=== PATIENT | female | born 1965 | race Caucasian/White ===

== ENCOUNTER 2022-09-20 07:48 | Outpatient (CLI) | payer OTHER, SELFPAY ==
[2022-09-20 09:22] LABS: Albumin* 4.5 g/dL (3.3-5.0)
[2022-09-20 09:23] LABS: Chloride* 107 mmol/L (96-114); Potassium* 4.8 mmol/L (3.6-5.1); Sodium* 138 mmol/L (135-149)
[2022-09-20 09:25] LABS: Alkaline Phosphatase* 58 U/L (40-150); Aspartate Amino Transferase* 25 U/L (12-35); Bilirubin Total* 0.7 mg/dL (0.1-1.5); Blood Urea Nitrogen* 14 mg/dL (7-30); Carbon Dioxide* 26 mmol/L (20-32); Cholesterol* 254 mg/dL (90-199); Creatinine* 0.6 mg/dL (0.5-1.5); Estimated Glomerular Filt Rate 104 ml/min; Total Protein* 7.5 g/dL (6.0-8.3)
[2022-09-20 09:26] LABS: Alanine Aminotransferase* 21 U/L (4-35); Calcium* 9.5 mg/dL (8.4-10.6); Glucose* 94 mg/dL (60-115); HDL Cholesterol* 71 mg/dL (>=50); LDL Cholesterol Calculated 155 mg/dL (<100); Triglycerides* 142 mg/dL (40-149)
[2022-09-20 09:40] LABS: Free T4 Free Thyroxine* 1.19 ng/dL (0.70-1.85)
== END 2022-09-20 07:49 | disposition home or self-care (01) ==
LOC: NFLDREF 07:49
PROVIDERS: PCP Family Medicine; Visit Provider Family Medicine
DX: E03.9 Hypothyroidism, unspecified (principal); E78.5 Hyperlipidemia, unspecified; Z13.228 Encounter for screening for other metabolic disorders
CPT/HCPCS: 80053; 80061; 84439; 84443

== ENCOUNTER 2022-11-17 10:53 | Outpatient (CLI) | payer OTHER, SELFPAY ==
--- NOTE | 2022-11-17 12:12 | W.ANESCHARGE ---
Anesthesia Charges Start Date/Time Anesthesia Start Date: 11/17/22 Anesthesia Start Time: 11:43 Stop Date/Time Anesthesia Stop Date: 11/17/22 Anesthesia Stop Time: 12:08
--- NOTE | 2022-11-17 12:35 | W.ANESCHARGE ---
Anesthesia Charges Start Date/Time Anesthesia Start Date: 11/17/22 Anesthesia Start Time: 11:43 Stop Date/Time Anesthesia Stop Date: 11/17/22 Anesthesia Stop Time: 12:08
== END 2022-11-17 10:54 | disposition home or self-care (01) ==
LOC: OP CLINIC 10:53
PROVIDERS: PCP Family Medicine; Visit Provider Surgery
DX: Z12.11 Encounter for screening for malignant neoplasm of colon (principal); K63.5 Polyp of colon; K57.30 Diverticulosis of large intestine without perforation or abscess without bleeding; Z86.010 Personal history of colon polyps
CPT/HCPCS: 00811; 45385; J2704

== ENCOUNTER 2023-01-18 07:27 | Outpatient (CLI) | payer OTHER, SELFPAY | END 2023-01-18 07:28 | disposition home or self-care (01) | LOC: NFLDREF 01-19 00:52 | PROVIDERS: PCP Family Medicine; Referring Provider Family Medicine; Visit Provider Family Medicine | DX: E78.5 Hyperlipidemia, unspecified (principal) | CPT/HCPCS: 80061 ==

== ENCOUNTER 2023-01-19 15:35 | Outpatient (CLI) | payer OTHER, SELFPAY ==
--- NOTE | 2023-01-19 15:40 | CRLHL7_ITS ---
For Patients: As a result of the Century Cures Act, medical imaging exams and procedure reports are released immediately into your electronic medical record. You may view this report before your referring provider. If you have questions, please contact your health care provider. BILATERAL SCREENING MAMMOGRAM WITH COMPUTER-AIDED DETECTION AND TOMOSYNTHESIS TECHNIQUE: CC and MLO views were obtained. These mammographic images have been obtained using full-field digital technique. These mammographic images were interpreted with the benefit of computer-aided detection. Breast Tomosynthesis was used in this interpretation. COMPARISON FILM: 09/30/21, 02/21/20, 10/25/18. FINDINGS: There are scattered areas of fibroglandular density IMPRESSION: There is no radiographic evidence for malignancy. ASSESSMENT: BI-RADS Category 1: Negative RECOMMENDATION: Routine screening mammogram in 1 year. A lay language report of this examination will be provided to the patient. Jaylen Ocasio M.D. Diagnostic Radiologist [email or web address] ZACK/Dictated by: Jaylen Ocasio MD @ 01/20/2023 11:51:00 AM (Electronically Signed)
== END 2023-01-19 15:36 | disposition home or self-care (01) ==
LOC: MAMMO 15:36
PROVIDERS: PCP Family Medicine; Visit Provider Family Medicine
DX: Z12.31 Encounter for screening mammogram for malignant neoplasm of breast (principal)
CPT/HCPCS: 77063; 77067

== ENCOUNTER 2023-10-12 08:38 | Outpatient (CLI) | payer OTHER, SELFPAY | END 2023-10-12 08:39 | disposition home or self-care (01) | PROVIDERS: PCP Family Medicine; Visit Provider Family Medicine | DX: E03.9 Hypothyroidism, unspecified (principal); E78.2 Mixed hyperlipidemia; I10 Essential (primary) hypertension | CPT/HCPCS: 80053; 80061; 84443 ==

== ENCOUNTER 2023-11-07 14:30 | Outpatient (RCR) | payer OTHER, SELFPAY | END 2023-12-28 13:15 | disposition home or self-care (01) | PROVIDERS: PCP Family Medicine; Visit Provider Family Medicine | DX: M54.50 Low back pain, unspecified (principal); Z51.89 Encounter for other specified aftercare | CPT/HCPCS: 97110; 97140; 97161 ==

== ENCOUNTER 2023-12-21 10:35 | Outpatient (CLI) | payer OTHER, SELFPAY ==
--- OUTSIDE RECORDS SUMMARY | 2023-12-22 12:46 | XMS_ITS | Clinical Summary ---
Author Name Unknown Organization [facility] Address [place], [place] [address] Care Team Providers Care National Accounts Sales Name Role Phone Sasha Pimentel MD Primary Care Provider + Allergies Active Allergy Reactions Criticality Noted Date Comments Cefadroxil Hives 11/02/2006 Medications Medication Sig Dispensed Refills Start Date End Date Status levothyroxine (SYNTHROID) 100 mcg tabletIndications:Un specified hypothyroidism TAKE ONE TABLET BY MOUTH EVERY MORNING BEFORE BREAKFAST 90 tablet 2 01/20/2013 Active cetirizine (ZYRTEC) 10 mg tabletIndications:Al lergic rhinitis, cause unspecified TAKE ONE TABLET BY MOUTH EVERY DAY 90 tablet 0 09/10/2013 Active rx oxyCODONE 5 mg (ROXICODONE) tablet (ED DC MED)Indications:Clos ed 3-part fracture of surgical neck of left humerus, initial encounter Take 1 Tablet (5 mg) by mouth every 6 hours if needed for Pain. 4 Tablet 11/13/2023 Active rosuvastatin (CRESTOR) 5 mg tablet Take 5 mg by mouth once daily. 10/18/2023 Active fluticasone (50 mcg per actuation) nasal solution (FLONASE) Inhale 2 Sprays to both nostrils once daily. 08/31/2023 Active losartan (COZAAR) 25 mg tablet Take 25 mg by mouth once daily. 10/12/2023 Active oxyCODONE (ROXICODONE) 5 mg immediate release tabletIndications:Cl osed 3-part fracture of surgical neck of left humerus, initial encounter Take 1 Tablet (5 mg) by mouth every 6 hours if needed for Pain. 20 Tablet 11/16/2023 Active acetaminophen (TylenoL) 325 mg tablet Take 650 mg by mouth every 6 hours if needed for Pain. Max acetaminophen dose: 4000mg in 24 hrs. Active oxyCODONE-acetaminop hen (PERCOCET) 5-325 mg per tabletIndications:Ot her closed displaced fracture of proximal end of left humerus, initial encounter Take 1-2 Tablets by mouth every 4 hours if needed for Pain. Max acetaminophen dose: 4000mg in 24 hrs. 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 Encounters Date Type Department Care Team Description 12/20/2023 11:34 AM CDT - 12/20/2023 11:59 PM CDT Hospital Encounter [address] [address] Tom Rooney MD Iverson, Ryan, PT 12/20/2023 Travel 12/15/2023 2:30 PM CDT - 12/15/2023 11:59 PM CDT Hospital Encounter [address] [address] Tom Rooney MD Vinar, Kaylin J, OCCUPATIONAL THERAPY AIDES TEACHER 12/15/2023 Travel 12/12/2023 2:30 PM CDT - 12/12/2023 11:59 PM CDT Hospital Encounter [address] [address] Tom Rooney MD Vinar, Kaylin J, OCCUPATIONAL THERAPY AIDES TEACHER 12/12/2023 Travel 12/07/2023 8:21 AM CDT - 12/07/2023 11:59 PM CDT Hospital Encounter [address] [address] Tom Rooney MD Iverson, Ryan, PT S/P ORIF (open reduction internal fixation) fracture 12/06/2023 8:25 AM CDT Ancillary Procedure [facility] [address] [place] [phone] 12/06/2023 8:20 AM CDT Office Visit [facility] [address] [place] [phone] Tom Rooney MD Surgical Followup (ORIF Left Shoulder) 12/06/2023 Travel 11/21/2023 10:45 AM CDT Anesthesia Event [facility] [address] [facility] [place] [address] Jie Romero CRNA Peterson, Bonnie Gail, CRNA 11/21/2023 10:05 AM CDT - 11/21/2023 12:20 PM CDT Surgery [facility] [address] [facility] [place] [address] Tom Rooney MD ORIF - PROXIMAL HUMERUS - LT ARM 11/21/2023 9:03 AM CDT - 11/21/2023 3:10 PM CDT Hospital Encounter [facility] [address] [place] [address] Tom Rooney MD Other closed displaced fracture of proximal end of left humerus, initial encounter (Primary Dx) Discharge Disposition: Home Self Care 11/21/2023 Travel 11/20/2023 Telephone [facility] [place] [address] [place] [phone] Tom Rooney MD Questions (questions) 11/16/2023 10:50 AM CDT Preop Visit [address] [address] Nalini Miranda MD Preoperative Exam (11/21/2023, ORIF - PROXIMAL HUMERUS - LT ARM, [facility], Dr. Rooney) 11/16/2023 Telephone [facility] [address] [place] [phone] Tom Rooney MD Need Meds (Refill) 11/15/2023 11:00 AM CDT Ancillary Procedure [facility] [address] [place] [phone] 11/15/2023 10:20 AM CDT Office Visit [facility] [address] [place] [phone] Tom Rooney MD Consult (Left Humerus Fx) 11/15/2023 Travel 11/13/2023 8:02 PM CDT - 11/13/2023 9:50 PM CDT Emergency [facility] [address] [facility] [place] [place] [address] Juan Antonio Mancuso PA Closed 3-part fracture of surgical neck of left humerus, initial encounter (Primary Dx) Discharge Disposition: Home Self Care 11/13/2023 Travel from Last 3 Months Immunizations Name Administration Dates Next Due Influenza A (H1N1), Inactivated 07/21/2009 Influenza RIV4 (Age 18+ Years) PRESERV FREE 08/2021,06/10/2021 Influenza, IIV3 (Age >=3 years) 08/14/2012,06/28,06/22/2005 Influenza, IIV4 07/27/2023,07/21/2009 Influenza, IIV4 (=>6mos) MDV 04/29/2020,06/03/20 19 Influenza, Live, Intranasal Laiv3 05/03/2011 Td (Age >=7 Years) 01/13/1998 Td, Preservative Free (age >= 7 Years) 5 Tdap 09/16/2008 Family History Medical History Relation Name Comments Heart Disease Father Other Father hiatal hernia Cancer Mother oral and lung Hyperlipidemia Mother Diabetes Other 1 mothers sibling s Heart Disease Other 2 mothers siblin gs Heart Disease Paternal Grandfather Cancer-breast Paternal Grandmother Heart Disease Paternal Uncle multiple unc les Asthma Sister 1 Other Sister 2 esophogeal stri ctures Relation Name Status Comments Father (Age 50) heart jean ck Mother (Age 74) oral and l wolf cancer Other 1 Other 2 Paternal Grandfather (Age 50) he art attack Paternal Grandmother (Age 70) br east cancer Paternal Uncle Sister 1 Sister 2 Social History Tobacco Use Types Packs/Day Years Used Date Smoking Tobacco: Some Days Cigarettes Smokeless Tobacco: Never Alcohol Use Standard Drinks/Week Comments Yes 0 (1 standard drink = 0.6 oz pur e alcohol) occasional PHQ-2 Answer Date Recorded PHQ-2 TOTAL SCORE 0 11/16/2023 Social Connections Answer Date Recorded Frequency of Communication with Friends and Fami ly 0 11/16/2023 Financial Resource Strain Answer Date R ecorded Difficulty of Paying Living Expenses 3 11/16/2023 Difficulty of Paying Living Expenses Not on file 11/16/2023 Food Insecurity Answer Date Recorded Worried About Running Out of Food in the Last Ye ar 1 11/16/2023 Transportation Needs Answer Date Record ed Lack of Transportation (Medical) 1 11/16/2023 Housing Stability Answer Date Recorded Unable to Pay for Housing in the Last Year 1 11/16/2023 Sex and Gender Information Value Date Recorded Sex Assigned at Not on file Gender Identity Not on file Sexual Orientation Not on file Obstetrics History Para Term AB IAB SAB Ectopic Multiple Livin g Live Births 2 2 Date Outcome GA Total Labor Labor/2nd/3rd Weight Sex Delivery Anes PTL Alta A1 A5 Name Cl in Last Filed Vital Signs Vital Sign Reading Time Taken Comments Blood Pressure 120/59 11/21/2023 2:15 PM CDT Pulse 64 11/21/2023 2:15 PM CDT Temperature 36.9 ??C (98.4 ??F) 11/21/2023 1:10 PM CD T Respiratory Rate 16 11/21/2023 2:15 PM CDT Oxygen Saturation 92% 11/21/2023 2:15 PM CDT Inhaled Oxygen Concentration - - Weight 67.3 kg (148 lb 4.8 oz) 11/21/2023 9:27 A M CDT Height 165.1 cm (5' 5) 11/21/2023 9:27 AM CDT Body Mass Index 24.68 11/21/2023 9:27 AM CDT Plan of Treatment Upcoming Encounters Date Type Department Care Team (Late st Contact Info) Description 12/26/2023 1:00 PM CDT Appointment [address] [address] Darion Lui, PT [address] [facility] [place] [address] 12/29/2023 9:15 AM CDT Appointment [address] [address] 01/03/2024 8:00 AM CDT Office Visit [facility] [place] [address] [place] [phone] Tom Rooney MD [address] [place] [address] 01/03/2024 3:15 PM CDT Appointment [address] [address] Anabel Olvera V, OCCUPATIONAL THERAPY AIDES TEACHER [address] [place] [address] 01/10/2024 11:00 AM CDT Appointment [address] [address] Norma Porter, OCCUPATIONAL THERAPY AIDES TEACHER [address] [place] [address] 01/18/2024 8:00 AM CDT Appointment [address] [address] Darion Lui, PT [address] [place] [address] 01/22/2024 2:30 PM CDT Appointment [address] [address] Darion Lui, PT [address] [facility] [place] [address] 01/25/2024 8:45 AM CDT Appointment [facility] [address] [facility] [address] Norma Porter, OCCUPATIONAL THERAPY AIDES TEACHER [address] [place] [address] 01/29/2024 3:15 PM CDT Appointment [facility] [address] [place] [address] Darion Lui, PT [address] [facility] [place] [address] 02/01/2024 8:45 AM CDT Appointment [facility] [address] [place] [place] [address] Darion Lui, PT [address] [place] [address] Health Maintenance Due Date Last Done Comments Pneumococcal series for age 6-64 (1 of 2 - PCV) 1970 HIV for age 15-65 1979 Hepatitis C screening for ag e 18-79 1982 Colonoscopy through age 75 2009 Zoster (shingles) series for age 50+ (1 of 2) 2014 Mammogram for age 45-75 01/17/2016 01/17/20 15, 06/08/2012, 06/04/2012, Additional history exists Lipids for age 45-75 12/12/2016 12/13/2011, 10/07/2009, 01/20/2009, Additional history exists COVID-19 vaccine series (2022- season) 2023 07/07/2022, 07/08/2021, 11/21/2020, Additional history exists Influenza for age 50-64 04/07/2024 07/27/20 23, 07/07/2022, 06/10/2021, Additional history exists Pap test for age 21-65 06/10/2024 , 06/10/2021, 01/26/2016, Additional history exists BMI (ht and wt on same day) for age 18+ 11/15/2024 11/16/2023 Depression screening for age 12+ 11/19/2024 11/20/2023, 11/16/2023, 11/16/2023, Additional history exists Tetanus booster 01/20/2025 01/20/2015, 09/07, 01/13/1998 Tdap Completed 09/16/2008 Medical Devices Implanted Type Area Rn Pediatric Device Identifier Shelf Expiration Date Model / Serial / Lot Proximal Lateral Humerus Plate Implanted:Qty: 1 on 11/21/2023 by Tom Rooney MD at [facility] Left: Humerus [employer] [id number] / / 3.5mm Cortical Screw, Self Tapping Implanted:Qty: 1 on 11/21/2023 by Tom Rooney MD at [facility] Left: Humerus [employer] [id number] / / 3.5mm Cortical Screw, Self Tapping Implanted:Qty: 1 on 11/21/2023 by Tom Rooney MD at [facility] Left: Humerus [employer] [id number] / / 4.0mm Cortical Screw, Self Tapping Implanted:Qty: 1 on 11/21/2023 by Tom Rooney MD at [facility] Left: Humerus [id number] / / 4.0 Mm Cortical Screw, Self Tapping Implanted:Qty: 3 on 11/21/2023 by Tom Rooney MD at [facility] Left: Humerus [employer] [id number] / / 4.0 Mm Cortical Screw, Self Tapping Implanted:Qty: 2 on 11/21/2023 by Tom Rooney MD at [facility] Left: Humerus [employer] [id number] / / 3.5mm Cortical Screw, Self Tapping Implanted:Qty: 3 on 11/21/2023 by Tom Rooney MD at [facility] Left: Humerus [employer] [id number] / / 3.5mm Cortical Screw, Self Tapping Implanted:Qty: 1 on 11/21/2023 by Tom Rooney MD at [facility] Left: Humerus [employer] [id number] / / Explanted Type Area Rn Pediatric Device Identifier Shelf Expiration Date Model / Serial / Lot 4.0mm Cortical Screw, Self Tapping Explanted:Qty: 1 on 11/21/2023 by Tom Rooney MD at [facility] Left: Humerus [id number] / / [employer] [place] 10pk - [id number] Explanted:Qty: 8 on 11/21/2023 by Tom Rooney MD at [facility] Left: Humerus [employer] [id number] / / Procedures Procedure Name Priority Date/Time Associated Diagnosis Comments XR SHOULDER 3 VIEWS LEFT Routine 12/06/2023 8:20 AM CDT S/P ORIF (open reduction internal fixation) fracture XR C-ARM GREATER 1 HR Routine 11/21/2023 1:01 PM CDT PERIPHERAL BLOCK Routine 11/21/2023 11:05 AM CDT SUPRAGLOTTIC-LMA Routine 11/21/2023 11:05 AM CDT OPEN REDUCTION INTERNAL FIXATION HUMERUS Class E Urgent 11/21/2023 10:25 AM CDT Closed 3-part fracture of surgical neck of left humerus, initial encounter Case Notes MIKI MIGHT BE THEREPLEASE CONTACT LEORA WITH Dmitriy aware of 1015 start. 11/14 Special Needs POST OP APPTS MADE BEDSIDE US STUDY ARCHIVE Routine 11/21/2023 10:18 AM CDT BEDSIDE US STUDY ARCHIVE Routine 11/21/2023 10:01 AM CDT POTASSIUM Routine 11/16/2023 12:05 PM CDT Pre-op exam CREATININE Routine 11/16/2023 12:05 PM CDT Pre-op exam XR SHOULDER 1 VIEW LEFT Routine 11/15/2023 11:03 AM CDT Closed 3-part fracture of surgical neck of left humerus, initial encounter XR FOREARM 2 VIEWS LEFT PORTABLE STAT 11/13/2023 9:14 PM CDT XR SHOULDER 2 VIEWS LEFT PORTABLE STAT 11/13/2023 8:51 PM CDT HPV THIN PREP Routine 06/10/2021 10:52 AM CDT SCAN-MAMMOGRAPHY REPORT 01/16/2015 12:00 AM CDT LIPID PANEL Routine 12/13/2011 9:11 AM CDT Screening, lipid from Last 3 Months or Most Recently Relevant to Health Maintenance Results * XR SHOULDER 3 VIEWS LEFT (12/06/2023 8:20 AM CDT) Anatomical Region Laterality Modality SHOULDERS, SHOULDER L Computed R adiography 12/06/2023 8:33 AM CDT Narrative 12/06/2023 8:33 AM CDT For Patients: ??As a result of the Cures Act, medical imaging exams and procedure reports are released immediately into your electronic medical record. ??You may view this report before your referring provider. ??If you have questions, please contact your health care provider. INDICATION: Status post ORIF. TECHNIQUE: Three views left shoulder. FINDINGS: Compression plate and multiple screws stabilize the comminuted left humeral head and surgical neck fracture in anatomical position and alignment for healing. No evidence of complication. Dictated by Aiden Farris MD @ 12/06/2023 8:33:41 AM (Electronically Signed) Procedure Note Aguila Farris MD - 12/06/2023 For Patients: As a result of the Cures Act, medical imagingexams and procedure reports are released immediately into your electronicmedical record. You may view this report before your referring provider.If you have questions, please contact your health care provider. INDICATION: Status post ORIF. TECHNIQUE: Three views left shoulder. FINDINGS: Compression plate and multiple screws stabilize the comminuted lefthumeral head and surgical neck fracture in anatomical position andalignment for healing. No evidence of complication. Dictated by Aiden Farris MD @ 12/06/2023 8:33:41 AM (Electronically Signed) Tom Rooney MD GENERAL IMAGIN G * XR C-ARM GREATER 1 HR (11/21/2023 1:01 PM CDT) Anatomical Region Laterality Modality X-Ray Angiograph y 11/22/2023 9:44 AM CDT Narrative 11/22/2023 9:44 AM CDT For Patients: ??As a result of the Cures Act, medical imaging exams and procedure reports are released immediately into your electronic medical record. ??You may view this report before your referring provider. ??If you have questions, please contact your health care provider. INDICATION: Left humerus ORIF. TECHNIQUE: Two spot images of the left shoulder. FINDINGS: Plate and screws across a left proximal humerus fracture. Dictated by Jason Tena MD @ 11/22/2023 9:44:59 AM (Electronically Signed) Procedure Note Jason Tena MD - 11/22/2023 For Patients: As a result of the Cures Act, medical imagingexams and procedure reports are released immediately into your electronicmedical record. You may view this report before your referring provider.If you have questions, please contact your health care provider. INDICATION: Left humerus ORIF. TECHNIQUE: Two spot images of the left shoulder. FINDINGS: Plate and screws across a left proximal humerus fracture. Dictated by Jason Tena MD @ 11/22/2023 9:44:59 AM (Electronically Signed) Tom Rooney MD FLUOROSCOPY * Peripheral Block (11/21/2023 11:05 AM CDT) Narrative Jie Romero CRNA - 11/21/2023 11:05 AM CDT Jie Romero CRNA ? 11/21/2023 11:09 AM Peripheral Block Patient location during procedure: OR Start time: 11/21/2023 10:40 AM End time: 11/21/2023 10:44 AM Reason for block: at surgeon's request and post-op pain PreProcedure Checklist Completed: patient identified, site marked, risks and benefits discussed, surgical consent, timeout performed and hand hygiene performed. Peripheral Block Patient position: sitting Prep: chloraprep Patient monitoring: ECG, blood pressure and continuous pulse oximetry Neuro Status: mild sedation Block type: supraclavicular and upper extremity , regional analgesia techniques Upper extremity block type: supraclavicular, regional analgesia techniques Laterality: left Injection technique: single injection Needle Needle type: Stimuplex ?? Needle Details: stimulating and echogenic Needle gauge: 20 G Needle length: 4 in Unilateral needle localization (ultrasound): live ultrasound guidance, needle and nerve visualized and local anesthetic visualized surrounding nerve. Unilateral needle Localization (plane blocks): needle and expected nerve location visualized and local anesthetic visualized in anatomic plane Events: no complications. Additional Notes Nerve stimulator utilized lost twitch at 0.3. pt tolerated well. Jie Romero CRNA ANESTHESIA PX NOTE ORDERABLES * Supraglottic (11/21/2023 11:05 AM CDT) Narrative Jie Romero CRNA - 11/21/2023 11:05 AM CDT Jie Romero CRNA ? 11/21/2023 11:05 AM Procedure: Supraglottic Patient location during procedure: OR Supraglottic Airway Properties Mask Ventilation: easy Type: i-gel Tube Size: 4 Insertion Attempts: 1 Placement Verification: auscultation and CO2 detection Assessment Assessment: atraumatic and dentition unchanged Jie Romero CRNA ANESTHESIA PX NOTE ORDERABLES * POTASSIUM (11/16/2023 12:05 PM CDT) POTASSIUM 4.2 3.5 - 5.1 mmol/L 11/16/2023 10:01 PM CDT [facility] Blood BLOOD SPECIMEN / Unknown Venipuncture / Unknown 11/16/2023 12:05 PM CDT 11/16/2023 12:05 PM CDT Nalini Miranda MD CHEMISTRY Performing Organization Address [facility] Co de Phone Number [facility] [address] [place] [address], * (ABNORMAL) CREATININE (11/16/2023 12:05 PM CDT) eGFR 89(L) >90 mL/min/1.7 3m2 11/16/2023 10:01 PM CDT [facility] Comment:As of 2021, eG FR is calculated by the CKD-EPI creatinine equation without race adjustment. ??eGFR can be influenced by muscle mass, exercise, and diet. ??The reported eGFR is an estimation only and is only applicable if the renal function is stable. CREATININE 0.77 0.50 - 0.90 mg/dL 11/16/2023 10:01 PM CDT [facility] Blood BLOOD SPECIMEN / Unknown Venipuncture / Unknown 11/16/2023 12:05 PM CDT 11/16/2023 12:05 PM CDT Nalini Miranda MD CHEMISTRY Performing Organization Address [facility] Phone Number [facility] [address] [place] [address], [place] * XR SHOULDER 1 VIEW LEFT (11/15/2023 11:03 AM CDT) Anatomical Region Laterality Modality SHOULDERS, SHOULDER L Computed R adiography 11/15/2023 11:2 9 AM CDT Narrative 11/15/2023 11:29 AM CDT For Patients: ??As a result of the 21st Century Cures Act, medical imaging exams and procedure reports are released immediately into your electronic medical record. ??You may view this report before your referring provider. ??If you have questions, please contact your health care provider. INDICATION: Surgical neck fracture. TECHNIQUE: Single axillary view of the left shoulder. FINDINGS: Comminuted surgical neck fracture is displaced anteriorly with slight rotation of the humeral head. The glenohumeral joint spacing is anatomically maintained. There are minimally displaced fragments of the lateral humeral head. Dictated by Aiden Farris MD @ 11/15/2023 11:29:18 AM (Electronically Signed) Procedure Note Aguila Farris MD - 11/15/2023 For Patients: As a result of the Cures Act, medical imagingexams and procedure reports are released immediately into your electronicmedical record. You may view this report before your referring provider.If you have questions, please contact your health care provider. INDICATION: Surgical neck fracture. TECHNIQUE: Single axillary view of the left shoulder. FINDINGS: Comminuted surgical neck fracture is displaced anteriorly with slightrotation of the humeral head. The glenohumeral joint spacing isanatomically maintained. There are minimally displaced fragments of thelateral humeral head. Dictated by Aiden Farris MD @ 11/15/2023 11:29:18 AM (Electronically Signed) Tom Rooney MD GENERAL IMAGIN G * XR FOREARM 2 VIEWS LEFT PORTABLE (11/13/2023 9:14 PM CDT) Anatomical Region Laterality Modality FOREARMS, FOREARM L Digital Radi ography 11/13/2023 9:17 PM CDT Impressions 11/13/2023 9:17 PM CDT 1. No acute osseous injuries or abnormalities are noted. Dictated by: Mike Goldberg MD @ 11/13/2023 21:17:53 (Electronically Signed) Narrative 11/13/2023 9:17 PM CDT For Patients: ??As a result of the Cures Act, medical imaging exams and procedure reports are released immediately into your electronic medical record. ??You may view this report before your referring provider. ??If you have questions, please contact your health care provider. INDICATION: Forearm Pain, Trauma TECHNIQUE: Forearm radiograph 2 views left COMPARISON: None FINDINGS: Bone: No acute fractures or aggressive bone lesions are identified. Joint: The visualized radiocarpal and elbow joints are unremarkable, but the elbow joint is not profiled. If there is pain or tenderness in this region, dedicated views of the elbow are recommended. No significant elbow effusion is seen. Soft tissue: Unremarkable. No radiopaque foreign bodies are seen. Procedure Note Mike Goldberg MD - 11/13/2023 For Patients: As a result of the Cures Act, medical imagingexams and procedure reports are released immediately into your electronicmedical record. You may view this report before your referring provider.If you have questions, please contact your health care provider. INDICATION: Forearm Pain, Trauma TECHNIQUE: Forearm radiograph 2 views left COMPARISON: None FINDINGS: Bone: No acute fractures or aggressive bone lesions are identified. Joint: The visualized radiocarpal and elbow joints are unremarkable, butthe elbow joint is not profiled. If there is pain or tenderness in thisregion, dedicated views of the elbow are recommended. No significant elboweffusion is seen. Soft tissue: Unremarkable. No radiopaque foreign bodies are seen. IMPRESSION: 1. No acute osseous injuries or abnormalities are noted. Dictated by: Mike Goldberg MD @ 11/13/2023 21:17:53 (Electronically Signed) [facility] * XR SHOULDER 2 VIEWS LEFT PORTABLE (11/13/2023 8:51 PM CDT) Anatomical Region Laterality Modality SHOULDERS, SHOULDER L Digital Ra diography 11/13/2023 9:05 PM CDT Impressions 11/13/2023 9:05 PM CDT 1. There is a comminuted fracture involving the greater tuberosity and surgical neck of the humerus. The distal fragment is displaced medially by 1.5 cm. Dictated by Mike Goldberg MD @ 11/13/2023 9:05:29 PM Dictated by: Mike Goldberg MD @ 11/13/2023 21:05:32 (Electronically Signed) Narrative 11/13/2023 9:05 PM CDT For Patients: ??As a result of the Cures Act, medical imaging exams and procedure reports are released immediately into your electronic medical record. ??You may view this report before your referring provider. ??If you have questions, please contact your health care provider. INDICATION: Shoulder Pain, Trauma TECHNIQUE: Shoulder radiograph 3 views left COMPARISON: None FINDINGS: Bone: There is a comminuted fracture involving the greater tuberosity and surgical neck of the humerus. The distal fragment is displaced medially by 1.5 cm. Joint: The glenohumeral joint is unremarkable. The acromioclavicular joint is unremarkable. Soft tissue: Unremarkable. The visualized hemithorax is unremarkable in appearance. No radiopaque foreign bodies are seen. Procedure Note Mike Goldberg MD - 11/13/2023 For Patients: As a result of the Cures Act, medical imagingexams and procedure reports are released immediately into your electronicmedical record. You may view this report before your referring provider.If you have questions, please contact your health care provider. INDICATION: Shoulder Pain, Trauma TECHNIQUE: Shoulder radiograph 3 views left COMPARISON: None FINDINGS: Bone: There is a comminuted fracture involving the greater tuberosity andsurgical neck of the humerus. The distal fragment is displaced medially by1.5 cm. Joint: The glenohumeral joint is unremarkable. The acromioclavicular jointis unremarkable. Soft tissue: Unremarkable. The visualized hemithorax is unremarkable inappearance. No radiopaque foreign bodies are seen. IMPRESSION: 1. There is a comminuted fracture involving the greater tuberosity andsurgical neck of the humerus. The distal fragment is displaced medially by1.5 cm. Dictated by Mike Goldberg MD @ 11/13/2023 9:05:29 PM Dictated by: Mike Goldberg MD @ 11/13/2023 21:05:32 (Electronically Signed) Juan Antonio ALCANTAR [facility] BERNARDA GING * HPV HIGH RISK (06/10/2021 10:52 AM CDT) TYPE 16 Negative Negative 06/14/2021 3:47 PM ELECTRICAL MANUFACTURING ENGINEER [facility] TYPE 18 Negative Negative 06/14/2021 3:47 PM ELECTRICAL MANUFACTURING ENGINEER [facility] OTHER HIGH RISK TYPES Negative Negative 06/14/2021 3:47 PM ELECTRICAL MANUFACTURING ENGINEER [facility] Other (Cervical/Vagina l) 06/10/2021 10:52 AM CDT 06/11/2021 10:28 AM CDT Narrative [facility] - 06/14/2021 3:47 PM ELECTRICAL MANUFACTURING ENGINEER HPV types 16, 18, 31, 33, 35, 39, 45, 51, 52, 56, 58, 59, 66 and 68 DNA were undetectable or below the pre-set threshold. Methodology: Adelfo Delfina 4800 HPV Test Sasha Pimentel MD MICROBIOLOGY [facility] [address] [place] [address], [place] * SCAN-MAMMOGRAPHY REPORT (01/16/2015 12:00 AM CDT) Anatomical Region Laterality Modality Other Narrative 01/21/2015 8:59 AM CDT Procedure Note Scanner - 01/16/2015 12:00 AM CDT Scanner OTHER * (ABNORMAL) LIPID PANEL (12/13/2011 9:11 AM CDT) CHOLESTEROL,TOTAL 212(H) 100 - 199 mg/dL [facility] TRIGLYCERIDES 121 <150 mg/dL [facility] HDL CHOLESTEROL 49 >40 mg/dL [facility] CHOL/HDL RATIO 4.33 <4.50 [facility] LDL CHOLESTEROL 139(H) <131 mg/dL [facility] PATIENT STATUS Fasting [facility] Blood specimen (specimen) BLOOD SPECIMEN / Unknown 12/13/2011 9:11 AM CDT 12/13/2011 9:06 AM CDT Tonja Armando NP CHEMISTRY [facility] [address] [place] [address] from Last 3 Months or Most Recently Relevant to Health Maintenance Advance Directives Documents on File Type Date Recorded Patient Machine I Trimmer Expl anation Healthcare Directive 10/15/2020 12:00 AM * Full Code (Latest Code Status on File) Date Activated Date Inactivated Comments 11/21/2023 10:11 AM 11/21/2023 5:34 PM Question Answer Comments Code Status Discussion: Reviewed Preferences Care Teams National Accounts Sales Relationship Specialty Start Date End Date Sasha Pimentel MD [address] [place] [address] PCP - General Family Practice 11/13/23
== END 2023-12-21 10:36 | disposition home or self-care (01) ==
LOC: NFLDREF 12-22 12:44
PROVIDERS: PCP Family Medicine; Referring Provider Family Medicine; Visit Provider Family Medicine
DX: I10 Essential (primary) hypertension (principal)
CPT/HCPCS: 80048

== ENCOUNTER 2024-04-17 15:05 | Outpatient (CLI) | payer OTHER, SELFPAY ==
--- OUTSIDE RECORDS SUMMARY | 2024-04-17 15:08 | XMS_ITS | Clinical Summary ---
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.5) 11/02/2006 Other anterior pituitary disorders 11/02/2006 Encounters Date Type Department Care Team Description 04/17/2024 8:44 AM CDT Hospital Encounter [address] [address] Tom Rooney MD Iverson, Ryan, PT Arrived 04/17/2024 Travel 04/10/2024 8:45 AM CDT - 04/10/2024 11:59 PM CDT Hospital Encounter [address] [address] Tom Rooney MD Wegner, Angela V, MANUFACTURING ENGINEER SUPERVISOR 04/10/2024 Travel 04/03/2024 8:41 AM CDT - 04/03/2024 11:59 PM CDT Hospital Encounter [address] [address] Tom Rooney MD Wegner, Angela V, MANUFACTURING ENGINEER SUPERVISOR 04/03/2024 Travel 03/27/2024 12:53 PM CDT - 03/27/2024 11:59 PM CDT Hospital Encounter [address] [address] Tom Rooney MD Iverson, Ryan, PT 03/27/2024 Travel 03/20/2024 9:29 AM CDT - 03/20/2024 11:59 PM CDT Hospital Encounter [address] [place] [address] Tom Rooney MD Wegner, Angela V, MANUFACTURING ENGINEER SUPERVISOR 03/20/2024 Travel 2024 1:00 PM CDT - 2024 11:59 PM CDT Hospital Encounter [address] [place] [address] Tom Rooney MD Iverson, Ryan, PT 2024 Travel 03/06/2024 7:54 AM CDT - 03/06/2024 11:59 PM CDT Hospital Encounter [address] [place] [address] Tom Rooney MD Iverson, Ryan, PT 03/06/2024 Travel 02/29/2024 7:52 AM CDT - 02/29/2024 11:59 PM CDT Hospital Encounter [address] [place] [address] Tom Rooney MD Wegner, Angela V, MANUFACTURING ENGINEER SUPERVISOR 02/29/2024 Travel 02/21/2024 3:00 PM CDT - 02/21/2024 11:59 PM CDT Hospital Encounter [address] [place] [address] Tom Rooney MD Iverson, Ryan, PT 02/21/2024 Travel 02/14/2024 8:20 AM CDT [facility] [place] [address] [place] [phone] Tom Rooney MD Surgical Followup (ORIF Left Proximal Humerus- 12 weeks) 02/14/2024 8:15 AM CDT Ancillary Procedure [facility] [address] [place] [address] [place] [phone] 02/14/2024 Travel 02/06/2024 10:56 AM CDT - 02/06/2024 11:59 PM CDT Hospital Encounter [address] [address] Tom Rooney MD Iverson, Ryan, PT 02/06/2024 Travel 02/01/2024 8:39 AM CDT - 02/01/2024 11:59 PM CDT Hospital Encounter [address] [address] Tom Rooney MD Iverson, Ryan, PT 02/01/2024 Travel 01/30/2024 3:15 PM CDT - 01/30/2024 11:59 PM CDT Hospital Encounter [address] [address] Tom Rooney MD Wegner, Angela V, MANUFACTURING ENGINEER SUPERVISOR 01/30/2024 Travel 01/25/2024 8:44 AM CDT - 01/25/2024 11:59 PM CDT Hospital Encounter [address] [address] Tom Rooney MD Vinar, Kaylin J, MANUFACTURING ENGINEER SUPERVISOR 01/25/2024 Travel 01/22/2024 2:30 PM CDT - 01/22/2024 11:59 PM CDT Hospital Encounter [address] [address] Tom Rooney MD Iverson, Ryan, PT 01/22/2024 Travel 01/18/2024 7:57 AM CDT - 01/18/2024 11:59 PM CDT Hospital Encounter [address] [address] Tom Rooney MD Iverson, Ryan, PT 01/18/2024 Travel from Last 3 Months Immunizations Name Administration Dates Next Due Influenza A (H1N1), Inactivated 07/21/2009 Influenza RIV4 (Age 18+ Years) PRESERV FREE 08/2021,06/10/2021 Influenza, IIV3 (Age >=3 years) 08/14/2012,06/28,06/22/2005 Influenza, IIV4 07/27/2023,07/21/2009 Influenza, IIV4 (=>6mos) MDV 04/29/2020,06/03/20 19 Influenza,LAIV3 Live Intranasal (Flumist) 2010 Td (Age >=7 Years) 01/13/1998 Td, Preservative [...] Outcome GA Total Labor Labor/2nd/3rd Weight Sex Type Anes PTL Alta A1 A5 Name Clin Last Filed Vital Signs Vital Sign Reading [...] Care Team (Late st Contact Info) Description 04/24/2024 9:30 AM CDT Appointment [address] [address] Anabel Olvera V, MANUFACTURING ENGINEER SUPERVISOR [address] [place] [address] 05/01/2024 2:30 PM CDT Appointment [address] [address] Darion Lui, PT [address] [place] [address] 05/15/2024 8:45 AM CDT Appointment [address] [address] Darion Lui, PT [address] [place] [address] Health Maintenance Due Date Last Done Comments [...] 01/20/2009, Additional history exists COVID-19 vaccine series (2022-24 season) 2024 07/07/2022, 07/08/2021, 11/21/2020, Additional history exists Influenza [...] Completed 09/16/2008 Medical Devices Implanted Type Area Treating Plant Pumper Device Identifier Shelf Expiration Date Model / Serial / Lot Proximal Lateral Humerus Plate Implanted:Qty: 1 on 11/21/2023 by Tom Rooney MD at [facility] Left: Humerus [employer] [id number] / / 3.5mm Cortical Screw, Self Tapping Implanted:Qty: 1 on 11/21/2023 by Tom Rooney MD at [facility] Left: Humerus [employer] [id number] / / 3.5mm Cortical Screw, Self Tapping Implanted:Qty: 1 on 11/21/2023 by Tom Rooney MD at [facility] Left: Humerus [employer] [id number] / / 4.0mm Cortical Screw, Self Tapping Implanted:Qty: 1 on 11/21/2023 by Tom Rooney MD at [facility] Left: Humerus [id number] / / 4.0 Mm Cortical Screw, Self Tapping Implanted:Qty: 3 on 11/21/2023 by Tom Rooney MD at [facility] Left: Humerus [employer] [id number] / / 4.0 Mm Cortical Screw, Self Tapping Implanted:Qty: 2 on 11/21/2023 by Tom Rooney MD at [facility] Left: Humerus [employer] [id number] / / 3.5mm Cortical Screw, Self Tapping Implanted:Qty: 3 on 11/21/2023 by Tom Rooney MD at [facility] Left: Humerus [employer] [id number] / / 3.5mm Cortical Screw, Self Tapping Implanted:Qty: 1 on 11/21/2023 by Tom Rooney MD at [facility] Left: Humerus [employer] [id number] / / Explanted Type Area Treating Plant Pumper Device Identifier Shelf Expiration Date Model / Serial / Lot 4.0mm Cortical Screw, Self Tapping Explanted:Qty: 1 on 11/21/2023 by Tom Rooney MD at [facility] Left: Humerus [id number] / / K-Wire [place] 10pk - [id number] Explanted:Qty: 8 on 11/21/2023 by Tom Rooney MD at [facility] Left: Humerus [employer] [id number] / / Procedures Procedure Name Priority Date/Time Associated Diagnosis Comments XR SHOULDER 3 VIEWS LEFT Routine 02/14/2024 8:14 AM CDT S/P ORIF (open reduction internal fixation) fracture HPV THIN PREP Routine 06/10/2021 10:52 AM CDT SCAN-MAMMOGRAPHY REPORT 01/16/2015 12:00 AM CDT LIPID PANEL Routine 12/13/2011 9:11 AM CDT Screening, lipid from Last 3 Months or Most Recently Relevant to Health Maintenance Results * XR SHOULDER 3 VIEWS LEFT (02/14/2024 8:14 AM CDT) Anatomical Region Laterality Modality SHOULDERS, SHOULDER L Computed R adiography 02/14/2024 8:28 AM CDT Impressions 02/14/2024 8:28 AM CDT Healing fracture of the proximal left humerus. No position change or complication when compared to the prior. Dictated by Aiden Farris MD @ 02/14/2024 8:28:27 AM (Electronically Signed) Narrative 02/14/2024 8:28 AM CDT For Patients: ??As a result of the Cures Act, medical imaging exams and procedure reports are released immediately into your electronic medical record. ??You may view this report before your referring provider. ??If you have questions, please contact your health care provider. INDICATION: Status post ORIF. TECHNIQUE: Three views left shoulder. COMPARISON: 01/03/2024 and 12/06/2023. FINDINGS: Healing surgical neck fracture of the proximal left humerus remains anatomically positioned. Plate and well-seated screws are unchanged. Glenohumeral joint spacing normal. Procedure Note Aguila Farris MD - 02/14/2024 For Patients: As a result of the s Act, medical imagingexams and procedure reports are released immediately into your electronicmedical record. You may view this report before your referring provider.If you have questions, please contact your health care provider. INDICATION: Status post ORIF. TECHNIQUE: Three views left shoulder. COMPARISON: 01/03/2024 and 12/06/2023. FINDINGS: Healing surgical neck fracture of the proximal left humerus remainsanatomically positioned. Plate and well-seated screws are unchanged.Glenohumeral joint spacing normal. IMPRESSION: Healing fracture of the proximal left humerus. No position change orcomplication when compared to the prior. Dictated by Aiden Farris MD @ 02/14/2024 8:28:27 AM (Electronically Signed) Tom Rooney MD GENERAL IMAGIN G * HPV HIGH RISK (06/10/2021 10:52 AM CDT) TYPE 16 Negative Negative 06/14/2021 3:47 PM WEATHERIZATION ADMINISTRATOR [facility] TYPE 18 Negative Negative 06/14/2021 3:47 PM WEATHERIZATION ADMINISTRATOR [facility] OTHER HIGH RISK TYPES Negative Negative 06/14/2021 3:47 PM WEATHERIZATION ADMINISTRATOR [facility] TRA LABORAT[facility] Other (Cervical/Vagina l) 06/10/2021 10:52 AM CDT 06/11/2021 10:28 AM CDT Narrative [facility] - 06/14/2021 3:47 PM WEATHERIZATION ADMINISTRATOR HPV types 16, 18, 31, 33, 35, 39, 45, 51, 52, 56, 58, 59, 66 and 68 DNA were undetectable or below the pre-set threshold. Methodology: Adelfo Delfina 4800 HPV Test Sasha Pimentel MD MICROBIOLOGY [facility] [address] [place] [address], * SCAN-MAMMOGRAPHY REPORT (01/16/2015 12:00 AM CDT) Anatomical Region Laterality Modality Other Narrative 01/21/2015 8:59 AM CDT Procedure Note Scanner - 01/16/2015 12:00 AM CDT Scanner OTHER * (ABNORMAL) LIPID PANEL (12/13/2011 9:11 AM CDT) CHOLESTEROL,TOTAL 212(H) 100 - 199 mg/dL [facility] TRIGLYCERIDES 121 <150 mg/dL [facility] HDL CHOLESTEROL 49 >40 mg/dL [facility] CHOL/HDL RATIO 4.33 <4.50 [facility] LDL CHOLESTEROL 139(H) <131 mg/dL [facility] PATIENT STATUS Fasting [facility] Blood specimen (specimen) BLOOD SPECIMEN / Unknown 12/13/2011 9:11 AM CDT 12/13/2011 9:06 AM CDT Tonja Armando REAGENT TENDER CHEMISTRY [facility] [address] [place] [address] from Last 3 Months or Most Recently Relevant to Health Maintenance Advance Directives Documents on File Type Date Recorded Patient Ad Operations Coordinator Expl anation Healthcare Directive 10/15/2020 12:00 AM * Full Code (Latest Code Status on File) Date Activated Date Inactivated Comments 11/21/2023 10:11 AM 11/21/2023 5:34 PM Question Answer Comments Code Status Discussion: Reviewed Preferences Care Teams Bull Riveter Relationship Specialty Start Date End Date Sasha Pimentel MD [address] [place] [address] PCP - General Family Practice 11/13/23
--- NOTE | 2024-04-17 15:20 | CRLHL7_ITS ---
For Patients: As a result of the Century Cures Act, medical imaging exams and procedure reports are released immediately into your electronic medical record. You may view this report before your referring provider. If you have questions, please contact your health care provider. BILATERAL SCREENING MAMMOGRAM WITH COMPUTER-AIDED DETECTION AND TOMOSYNTHESIS TECHNIQUE: CC and MLO views were obtained. These mammographic images have been obtained using full-field digital technique. These mammographic images were interpreted with the benefit of computer-aided detection. Breast Tomosynthesis was used in this interpretation. COMPARISON FILM: 02/21/20, 10/25/18, 01/19/23. FINDINGS: There are scattered areas of fibroglandular density. IMPRESSION: There is no radiographic evidence for malignancy. ASSESSMENT: BI-RADS Category 1: Negative RECOMMENDATION: Routine screening mammogram in 1 year. A lay language report of this examination will be provided to the patient. Jaylen Ocasio M.D. Diagnostic Radiologist [email or web address] SP/Dictated by: Jaylen Ocasio MD @ 04/18/2024 8:31:00 AM (Electronically Signed)
== END 2024-04-17 15:06 | disposition home or self-care (01) ==
LOC: MAMMO 15:06
PROVIDERS: PCP Family Medicine; Visit Provider Family Medicine
DX: Z12.31 Encounter for screening mammogram for malignant neoplasm of breast (principal)
CPT/HCPCS: 77063; 77067

== ENCOUNTER 2024-07-09 09:26 | Outpatient (CLI) | payer OTHER, SELFPAY ==
--- OUTSIDE RECORDS SUMMARY | 2024-07-09 09:33 | XMS_ITS | Clinical Summary ---
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 [facility](359.5) 11/02/2006 Other anterior pituitary disorders 11/02/2006 Encounters Date Type Department Care Team Description 05/15/2024 8:40 AM CDT - 05/15/2024 11:59 PM CDT Hospital Encounter [address] [address] Tom Rooney MD Iverson, Ryan, PT 05/15/2024 Travel 05/01/2024 7:57 AM CDT - 05/01/2024 11:59 PM CDT Hospital Encounter [address] [address] Tom Rooney MD Wegner, Angela V, SCREEN MAKING SUPERVISOR 05/01/2024 Travel 04/24/2024 9:26 AM CDT - 04/24/2024 11:59 PM CDT Hospital Encounter [address] [address] Tom Rooney MD Wegner, Angela V, SCREEN MAKING SUPERVISOR 04/24/2024 Travel 04/17/2024 8:44 AM CDT - 04/17/2024 11:59 PM CDT Hospital Encounter [address] [address] Tom Rooney MD Iverson, Ryan, PT 04/17/2024 Travel 04/10/2024 8:45 AM CDT - 04/10/2024 11:59 PM CDT Hospital Encounter [facility] [address] [address] Tom Rooney MD Wegner, Anabel Mosher, SCREEN MAKING SUPERVISOR 04/10/2024 Travel from Last 3 Months Immunizations Name [...] 0 11/16/2023 Social Connections Answer Date Recorded Do you often feel lonely or isolated from those around you? 0 11/16/2023 Financial Resource Strain Answer Date R ecorded Difficulty of Paying Living Expenses 3 11/16/2023 Difficulty of Paying Living Expenses Not on file 11/16/2023 Food Insecurity Answer Date Recorded Do you worry your food will run out before you are able to buy more? 1 11/16/2023 Transportation Needs Answer Date Record ed Does lack of transportation keep you from medica l appointments? 1 11/16/2023 Does lack of transportation keep you from work, meetings or getting things that you need? 1 11/16/2023 Housing Stability Answer Date Recorded What is your housing situation today? 1 11/16/2023 Sex and Gender Information Value [...] 63 11/21/2023 2:15 PM CDT Temperature 36.9 C (98.4 F) 11/21/2023 1:10 PM CDT Respiratory Rate 16 11/21/2023 2:15 PM CDT Oxygen Saturation 92% 11/21/2023 2:15 PM CDT Inhaled Oxygen Concentration - - Weight 67.3 kg (148 lb 4.8 oz) 11/21/2023 9:27 A M CDT Height 165.1 cm (5' 5) 11/21/2023 9:27 AM CDT Body Mass Index 24.68 11/21/2023 9:27 AM CDT Plan of Treatment Health Maintenance Due Date Last Done Comments [...] 01/20/2009, Additional history exists COVID-19 vaccine series ( season) 2024 07/07/2022, 07/08/2021, 11/21/2020, Additional history [...] Completed 09/16/2008 Medical Devices Implanted Type Area Senior Research Consultant Device Identifier Shelf Expiration Date Model / Serial / Lot Proximal Lateral Humerus Plate Implanted:Qty: 1 on 11/21/2023 by Tom Rooney MD at [facility] Left: Humerus [employer] [id number] / / 3.5mm Cortical Screw, Self Tapping Implanted:Qty: 1 on 11/21/2023 by Tom Rooney MD at [facility] Left: Humerus [employer] [id number] / / 3.5mm Cortical Screw, Self Tapping Implanted:Qty: 1 on 11/21/2023 by Tom Rooney MD at [facility] Left: Humerus [employer] [id number] / / 4.0mm Cortical Screw, Self Tapping Implanted:Qty: 1 on 11/21/2023 by Tom Rooney MD at [facility] Left: Humerus [id number] / / 4.0 Mm Cortical Screw, Self Tapping Implanted:Qty: 3 on 11/21/2023 by Tom Rooney MD at [facility] Left: Humerus [employer] [id number] / / 4.0 Mm Cortical Screw, Self Tapping Implanted:Qty: 2 on 11/21/2023 by Tom Rooney MD at [facility] Left: Humerus [employer] [id number] / / 3.5mm Cortical Screw, Self Tapping Implanted:Qty: 3 on 11/21/2023 by Tom Rooney MD at [facility] Left: Humerus [employer] [id number] / / 3.5mm Cortical Screw, Self Tapping Implanted:Qty: 1 on 11/21/2023 by Tom Rooney MD at [facility] Left: Humerus [employer] [id number] / / Explanted Type Area Senior Research Consultant Device Identifier Shelf Expiration Date Model / Serial / Lot 4.0mm Cortical Screw, Self Tapping Explanted:Qty: 1 on 11/21/2023 by Tom Rooney MD at [facility] Left: Humerus [id number] / / K-Wire [employer] 10pk - [id number] Explanted:Qty: 8 on 11/21/2023 by Tom Rooney MD at [facility] Left: Humerus [facility] [id number] / / Procedures Procedure Name Priority Date/Time Associated Diagnosis Comments HPV HIGH RISK Routine 06/10/2021 10:52 AM CDT SCAN-MAMMOGRAPHY REPORT 01/16/2015 12:00 AM CDT LIPID PANEL Routine 12/13/2011 9:11 AM CDT Screening, lipid from Last 3 Months or Most Recently Relevant to Health Maintenance Results * HPV HIGH RISK (06/10/2021 10:52 AM CDT) TYPE 16 Negative Negative 06/14/2021 3:47 PM LEGAL MANAGER [facility] TYPE 18 Negative Negative 06/14/2021 3:47 PM LEGAL MANAGER [facility] OTHER HIGH RISK TYPES Negative Negative 06/14/2021 3:47 PM LEGAL MANAGER [facility] TRAL LABORATORY Other (Cervical/Vagina l) 06/10/2021 10:52 AM CDT 06/11/2021 10:28 AM CDT Narrative [facility] - 06/14/2021 3:47 PM LEGAL MANAGER HPV types 16, 18, 31, 33, 35, 39, 45, 51, 52, 56, 58, 59, 66 and 68 DNA were undetectable or below the pre-set threshold. Methodology: Adelfo Delfina 4800 HPV Test Sasha Pimentel MD MICROBIOLOGY [facility] [address] [place] [address], [place] * SCAN-MAMMOGRAPHY REPORT (01/16/2015 12:00 AM CDT) Anatomical Region Laterality Modality Other Narrative 01/21/2015 8:59 AM CDT Procedure Note Scanner - 01/16/2015 12:00 AM CDT Scanner OTHER * (ABNORMAL) LIPID PANEL (12/13/2011 9:11 AM CDT) CHOLESTEROL,TOTAL 212(H) 100 - 199 mg/dL [facility] TRIGLYCERIDES 121 <150 mg/dL [facility] HDL CHOLESTEROL 49 >40 mg/dL [facility] CHOL/HDL RATIO 4.33 <4.50 [facility] LDL CHOLESTEROL 139(H) <131 mg/dL [facility] PATIENT STATUS Fasting [facility] Blood specimen (specimen) BLOOD SPECIMEN / Unknown 12/13/2011 9:11 AM CDT 12/13/2011 9:06 AM CDT Tonja Armando NP CHEMISTRY [facility] [address] [place] [address] from Last 3 Months or Most Recently Relevant to Health Maintenance Advance Directives Documents on File Type Date Recorded Patient Investigator Utility Bill Complaints Expl anation Healthcare Directive 10/15/2020 12:00 AM * Full Code (Latest Code Status on File) Date Activated Date Inactivated Comments 11/21/2023 10:11 AM 11/21/2023 5:34 PM Question Answer Comments Code Status Discussion: Reviewed Preferences Care Teams Counter Tender Relationship Specialty Start Date End Date Sasha Pimentel MD [address] [place] [address] PCP - General Family Practice 11/13/23
== END 2024-07-09 09:27 | disposition home or self-care (01) ==
PROVIDERS: PCP Family Medicine; Visit Provider Family Medicine
DX: R53.83 Other fatigue (principal); I10 Essential (primary) hypertension; E03.9 Hypothyroidism, unspecified; R42 Dizziness and giddiness; Z86.018 Personal history of other benign neoplasm
CPT/HCPCS: 80053; 84146; 84443

== ENCOUNTER 2025-04-29 15:07 | Outpatient (CLI) | payer BC, SELFPAY ==
--- NOTE | 2025-04-29 15:20 | CRLHL7_ITS ---
For Patients: As a result of the Century Cures Act, medical imaging exams and procedure reports are released immediately into your electronic medical record. You may view this report before your referring provider. If you have questions, please contact your health care provider. INDICATION: BILATERAL SCREENING MAMMOGRAM, [id number] Y/O F COMPARISON: 04/17/24, 01/19/23, 09/30/21 TECHNIQUE: Digital mammogram in CC and MLO projections including computer-aided detection (CAD) and tomosynthesis. BREAST COMPOSITION: There are scattered areas of fibroglandular density. FINDINGS: No suspicious findings. ASSESSMENT: BI-RADS 1 Negative RECOMMENDATION: Annual screening mammogram. A lay language report of this examination will be provided to the patient. Dictated by: Flora Dickerson MD @ 04/30/2025 12:35:18 (Electronically Signed)
== END 2025-04-29 15:08 | disposition home or self-care (01) ==
LOC: MAMMO 15:07
PROVIDERS: PCP Family Medicine; Visit Provider Family Medicine
DX: Z12.31 Encounter for screening mammogram for malignant neoplasm of breast (principal)
CPT/HCPCS: 77063; 77067

== ENCOUNTER 2025-06-03 08:10 | Outpatient (CLI) | payer BC, SELFPAY | END 2025-06-03 08:11 | disposition home or self-care (01) | LOC: NFLDREF 06-04 19:26 | PROVIDERS: PCP Family Medicine; Referring Provider Family Medicine; Visit Provider Family Medicine | DX: E78.5 Hyperlipidemia, unspecified (principal); I10 Essential (primary) hypertension; E03.9 Hypothyroidism, unspecified | CPT/HCPCS: 80053; 80061; 84443 ==